=== PATIENT | female | born 1985 | race Caucasian/White ===

== ENCOUNTER 2019-10-09 12:42 | Emergency (ER) | payer OTHER, SELFPAY ==
[2019-10-09 12:46] VITALS: BP 139/73; PULSE 85; RESP 16; TEMP 36.7; O2SAT 98
--- NOTE | 2019-10-09 13:28 | ED.GENADUL_ITS ---
Discharge Plan Disposition Patient Disposition: HOME Condition: Stable Discharge Details Chief Complaint: Cellulitis Clinical Impression: Subungual cellulitis of toe of left foot Primary Care Provider: Nat,Local ED Provider: Tricia Marquez Home Meds and New Rx's Prescriptions: New clindamycin HCl 300 mg capsule 300 mg PO TID 7 Days Qty: 21 RF: 0 Continued aspirin [Aspir-81] 81 mg Tablet,Delayed Release (Dr/Ec) RF: 0 escitalopram oxalate [Lexapro] 20 mg Tablet 20 mg RF: 0 Vyvanse 50 mg Capsule 50 mg RF: 0 Discharge Instructions Instructions: Cellulitis (ED) Additional Instructions: Follow up with primary care provider in 3-5 days. Return to ED sooner if any worsening or concerns. Do not soak toe. Keep clean and dry. Take medications as directed. Tylenol or Ibuprofen as needed for pain. Discharge Data Discharge Date/Time-TO BE ENTERED AT DEPARTURE: 10/09/19 13:50 Medical Decision Making 34-year-old female presents with left second toe tenderness erythema and swelling x1 day. Patient states that she was clipping her nails and cut her nail to close, began bleeding. She then noticed that it started to get warm and erythemic. She tried to I&D her toe herself at home and was unsuccessful. She noted a red streak going up her toe today. Denies any fever chills, no other symptoms. She was on Augmentin in early September for a sinus infection. She is allergic to Ceclor. On exam she does have a erythemic, swollen second toe. With a small red streak to the dorsum of her toe. She was given clindamycin 4 and 50 mg p.o. in department prior to discharge. And placed on clindamycin x7 days. Strict return instructions given, instructed to return for any worsening redness or swelling. Non-adherent bandage applied. Patient given discharge instructions, verbalized understanding. HPI General Date/Time Provider Initiated Documentation: 10/09/19 12:51 . Limitations to Documentation: no limitations . Information obtained by: patient . HPI Narrative: 34-year-old female presents with left second toe cellulitis. Reports clipping her toenails too short and began yesterday with erythema, swelling, some mild purulent drainage. Patient reports that she did try to do an I&D at home. There is a small red streak noted up to her foot. Denies fever chills. Was recently on Augmentin beginning of September for a sinus infection. Related Data Home Medications Medication Instructions Recorded Confirmed Vyvanse 50 mg 10/09/19 aspirin [Aspir-81] 10/09/19 clindamycin HCl 300 mg PO TID 7 Days #21 cap 10/09/19 escitalopram oxalate [Lexapro] 20 mg 10/09/19 Previous Rx's Medication Instructions Recorded clindamycin HCl 300 mg PO TID 7 Days #21 cap 10/09/19 Allergies Allergy/AdvReac Type Severity Reaction Status Date / Time cefaclor [From Ceclor] Allergy Mild Hives Unverified 10/09/19 12:51 General Stated Complaint: Cellulitis NITHYA: 3 Review of Systems Narrative: Constitutional: Negative for weight loss, alert and oriented, well groomed, normal body habitus, appears comfortable. HEENT: Denies trauma, headaches, blurry vision, nasal discharge, sore throat, trouble swallowing. Chest: Denies chest pain, palpitations, irregular rhythm, hypertension. Respiratory: Denies Shortness of breath, cough, hemoptysis. GI: Denies abdominal pain, nausea, vomiting, diarrhea, constipation. : Denies dysuria, hematuria, flank pain, vaginal bleeding, rectal bleeding. Neuro: Denies dizziness, blurry vision, weakness, syncope, headache or facial numbness. Hematologic: Denies easy bruising, intolerance to heat or cold, hair loss. Skin: Left 2nd toe cellulitis, pain swelling noted. [facility] Social History Smoking/Tobacco Use Status: Never Substance use type: does not use Do you feel safe at home: Yes Do you feel safe in your relationship?: Yes Exam Const General: cooperative, healthy appearing, comfortable and no acute distress Orientation: alert, awake and oriented x3 Extrem Left lower extremity: foot Details: tenderness Location: of another digit Location: the 2nd digit (Erythema, red streaks, swelling) and over the nailbed and warmth (2nd toe) Course Vital Signs Vital signs: Vital Signs Temperature 36.7 C 10/09/19 12:46 Pulse 85 10/09/19 12:46 Respiratory Rate 16 10/09/19 12:46 Blood Pressure 139/73 01/24/20 12:46 Pulse Oximetry 98 10/09/19 12:46 Temperature 36.7 C 10/09/19 12:46 Temperature Source Skin 10/09/19 12:46 Pulse 85 10/09/19 12:46 Respiratory Rate 16 10/09/19 12:46 Respiratory Effort 10/09/19 12:52 Blood Pressure 139/73 10/09/19 12:46 Blood Pressure Position Sitting 10/09/19 12:46 Pulse Oximetry 98 10/09/19 12:46 Oxygen Delivery Method Room Air 10/09/19 12:46 Oxygen Flow Rate 0 10/09/19 12:46 Pain Level 2 10/09/19 12:46
[2019-10-09] MEDS: Clindamycin 150 MG CAP 450 MG PO (13:45)
[2019-10-09 13:48] VITALS: BP 139/73; PULSE 85; RESP 16; TEMP 36.7; O2SAT 98
== END 2019-10-09 13:50 | disposition home or self-care (01) ==
PROVIDERS: Emergency Provider Registered Nurse Emergency
DX: L03.032 Cellulitis of left toe (principal)
CPT/HCPCS: 99283